=== PATIENT | female | born 1985 | race American Indian/Alaskan Native ===

== ENCOUNTER 2019-05-10 22:23 | Emergency (ER) | payer MEDICAID ==
[2019-05-10] MEDS ORDERED: Sodium Chloride 0.9% 10 ML Syringe FLUSH PRN (22:25)
[2019-05-10] MEDS ORDERED: HYDROmorphone 1 MG/ML Syringe IVPUSH ONE (22:26)
[2019-05-10] MEDS ORDERED: Iopamidol 612 MG/ML 100 ML Bottle IVPUSH ONE (22:42)
--- NOTE | 2019-05-10 22:49 | EDM.PDOC ---
ED HPI GENERAL MEDICAL PROBLEM - General Chief Complaint: Trauma Stated Complaint: BUCKED OFF A HORSE Time Seen by Provider: 05/10/19 22:35 Source of Information: Reports: Patient History Limitations: Reports: No Limitations - History of Present Illness INITIAL COMMENTS - FREE TEXT/NARRATIVE: HPI: This 33 yo female patient was brought to the ED in the backseat of a pickup after being bucked off a horse. The patient reports she fell directly onto her back from the horse. Since the fall, the patient has started to experience some diffuse abdominal pain. The patient denies any loss of consciousness before, during or after the fall. Primary Survey Airway: open and patient Breathing: regular without additional effort Circulation: no major bleeding noted Deformity: no deformity noted Expose: as appropriate GCS: 15 Secondary Survey HEENT Head: normocephalic, atraumatic Eyes: PERRLA Ears: no obvious trauma, canals open Nose: no deformity, no bleeding, mucosa moist Mouth: no noted trauma Throat: no abnormalities noted Neck: Subtle, normal range of motion no cervical tenderness Chest: lung sounds were clear and equal bilaterally Heart: RRR, no murmurs, rubs or gallop Abdomen: normoactive bowel sounds, no organomegally, diffuse tenderness on palpation Back: lower back tenderness (L2-L4), increased pain with movement Pelvis: stable Extremities: CMS intact Provider Trauma Notes Arrival Time: 2234 GCS on Arrival: 15 C-collar present on arrival: No GCS at 1 hour: Off spine board: NA Time primary survey: 2234 Time secondary survey:2239 Time C-collar cleared: 2234 By: DS Time removed: NA GCS on discharge: Onset: Today Duration: Minutes:, Constant Location: Reports: Abdomen, Back Quality: Reports: Ache, Sharp, Stabbing Severity: Severe Improves with: Reports: Rest Worsens with: Reports: Movement Context: Reports: Trauma (Fall from horse) - Related Data Allergies Allergy/AdvReac Type Severity Reaction Status Date / Time No Known Allergies Allergy Verified 05/10/19 22:44 Home Meds: Home Meds . [No Known Home Meds] 05/10/19 [History] Past Medical History - Past Health History Medical/Surgical History: Denies Medical/Surgical History Genitourinary History: Reports: None Other [employer] History: Hx Chlamydia, BV, Abnormal Pap LGSIL, IUD, Menorrhagia, Pelvic pain Musculoskeletal History: Reports: Back Pain, Chronic Hematologic History: Reports: Other (See Below) Other Hematologic History: tranfusion after D&C Dermatologic History: Reports: Other (See Below) Other Dermatologic History: tatoo - Past Surgical History GI Surgical History: Reports: Appendectomy, Cholecystectomy Female Surgical History: Reports: D&C Social & Family History - Living Situation & Occupation Living situation: Reports: Single, with Family Occupation: Unemployed Review of Systems - Review of Systems Review Of Systems: ROS reveals no pertinent complaints other than HPI. ED EXAM, GENERAL - Physical Exam Exam: See Below Exam Limited By: No Limitations General Appearance: Alert, WD/WN, Moderate Distress Eye Exam: Bilateral Eye: EOMI, Normal Inspection, PERRL Ears: Normal External Exam, Normal Canal, Hearing Grossly Normal, Normal TMs Nose: Normal Inspection, Normal Mucosa, No Blood Throat/Mouth: Normal Inspection, Normal Lips, Normal Teeth, Normal Gums, Normal Oropharynx, Normal Voice, No Airway Compromise Head: Atraumatic, Normocephalic Neck: Normal Inspection, Supple, Non-Tender, Full Range of Motion. No: Limited Range of Motion, Tender Lateral, Tender Midline Respiratory/Chest: No Respiratory Distress, Lungs Clear, Normal Breath Sounds, No Accessory Muscle Use, Chest Non-Tender Cardiovascular: Normal Peripheral Pulses, Regular Rate, Rhythm, No Edema, No Gallop, No JVD, No Murmur, No Rub GI/Abdominal: Normal Bowel Sounds, Soft, No Organomegaly, No Distention, No Abnormal Bruit, No Mass, Tender (diffuse abdominal tenderness (patient reports increased pain in lower back with palpation of abdomen)) (Female) Exam: Deferred Rectal (Female) Exam: Deferred Back Exam: Paraspinal Tenderness (lumbar spine), Vertebral Tenderness (lumbar spine) Extremities: Normal Inspection, Limited Range of Motion (due to lower back pain) Neurological: Alert, Oriented, CN II-XII Intact, Normal Cognition Psychiatric: Normal Affect, Normal Mood Skin Exam: Warm, Dry, Intact, Normal Color, No Rash Lymphatic: No Adenopathy Course - Orders/Labs/Meds Orders: Active Orders 24 hr Category Date Time Status Abdomen Pelvis w Cont [CT] Urgent Exams 05/10/19 22:42 Ordered Lumbar Spine wo Cont [CT] Urgent Exams 05/10/19 22:30 Ordered Sodium Chloride 0.9% @ 125 MLS/HR (1000ml) Med 05/11/19 00:15 Ordered Sodium Chloride 0.9% [Normal Saline] 1,000 ml IV ASDIRECTED Sodium Chloride 0.9% [Saline Flush] Med 05/10/19 22:25 Ordered 10 ml FLUSH ASDIRECTED PRN Saline Lock Insert [OM.PC] Routine Oth 05/10/19 22:25 Ordered Medication Orders Sodium Chloride (Normal Saline) 1,000 mls @ 125 mls/hr IV ASDIRECTED BENNY Last Admin: 05/11/19 00:17 Dose: 125 mls/hr Sodium Chloride (Saline Flush) 10 ml FLUSH ASDIRECTED PRN PRN Reason: Keep Vein Open Last Admin: 05/10/19 22:35 Dose: 10 ml Labs: Laboratory Tests 05/10/19 05/10/19 Range/Units 22:35 22:35 WBC 14.3 H (5.0-10.0) 10^3/uL RBC 4.67 (4.2-5.4) 10^6/uL Hgb 13.6 D (12.0-16.0) g/dL Hct 40.9 (37.0-47.0) % MCV 87.6 D (80-100) fL MCH 29.1 (27.0-34.0) pg MCHC 33.3 (33.0-35.0) g/dL Plt Count 200 (150-450) 10^3/uL Neut % (Auto) 85.5 H (42.2-75.2) % Lymph % (Auto) 9.3 L (20.5-50.1) % [place] % (Auto) 4.6 (2-8) % Eos % (Auto) 0.4 L (1.0-3.0) % Baso % (Auto) 0.2 (0.0-1.0) % Add Manual Diff Yes Neutrophils % (Manual) 80 H (42-75) % Band Neutrophils % 4 % Lymphocytes % (Manual) 11 L (20-50) % Monocytes % (Manual) 4 (2-8) % Eosinophils % (Manual) 1 (1-3) % Sodium 140 (135-145) mmol/L Potassium 3.9 (3.6-5.0) mmol/L Chloride 105 (101-111) mmol/L Carbon Dioxide 27.0 (21.0-31.0) mmol/L Anion Gap 11.9 BUN 10 (7-18) mg/dL Creatinine 0.8 (0.6-1.3) mg/dL Est Cr Clr Drug Dosing TNP Estimated GFR (MDRD) > 60 BUN/Creatinine Ratio 12.50 Glucose 101 (74-105) mg/dL Calcium 9.0 (8.4-10.2) mg/dl Total Bilirubin 0.5 (0.2-1.0) mg/dL AST 26 (10-42) IU/L ALT 31 (10-60) IU/L Alkaline Phosphatase 74 (42-121) IU/L Total Protein 7.0 (6.7-8.2) g/dl Albumin 3.9 (3.2-5.5) g/dl Globulin 3.1 Albumin/Globulin Ratio 1.26 Meds: Medications Generic Name Dose Route Start Last Admin Trade Name Freq PRN Reason Stop Dose Admin Sodium Chloride 1,000 mls @ 125 mls/hr 05/11/19 00:15 05/11/19 00:17 Normal Saline IV 125 mls/hr ASDIRECTED BENNY Administration Sodium Chloride 10 ml 05/10/19 22:25 05/10/19 22:35 Saline Flush FLUSH 10 ml ASDIRECTED PRN Administration Keep Vein Open Discontinued Medications Generic Name Dose Route Start Last Admin Trade Name Freq PRN Reason Stop Dose Admin Hydromorphone HCl 1 mg 05/10/19 22:26 05/10/19 22:35 Dilaudid IVPUSH 05/10/19 22:27 1 mg ONETIME ONE Administration Hydromorphone HCl 1 mg 05/11/19 00:10 05/11/19 00:16 Dilaudid IVPUSH 05/11/19 00:11 1 mg ONETIME ONE Administration Iopamidol 100 ml 05/10/19 22:42 05/10/19 22:53 Isovue-300 (61%) IVPUSH 05/10/19 22:43 100 ml ONETIME ONE Administration - Re-Assessments/Exams Free Text/Narrative Re-Assessment/Exam: 05/11/19 00:25 A call was placed to [facility] regarding the patient's injuries. Spoke with Dr. Hudson (Neurosurgery) who advised to transfer the patient directly to [facility] for their expertise in Neurosurgery. Call placed at [phone] Departure - Departure Time of Disposition: 00:06 Disposition: DC/Tfer to Acute Hospital 02 Condition: Fair Clinical Impression: Burst fracture of lumbar vertebra Qualifiers: Encounter type: initial encounter Fracture type: closed Qualified Code(s): S32.001A - Stable burst fracture of unspecified lumbar vertebra, initial encounter for closed fracture - Discharge Information *PRESCRIPTION DRUG MONITORING PROGRAM REVIEWED*: Not Applicable *COPY OF PRESCRIPTION DRUG MONITORING REPORT IN PATIENT DEBBY: Not Applicable Forms: Interfacility Transfer EMTALA Care Plan Goals: Discussed the patient's history, examination, lab results and CT results with Dr. Mclaughlin ([facility]). Dr. Mclaughlin accepted the patient for continued evaluation and management. The patient will be transported by [facility]. - My Orders Last 24 Hours: My Active Orders 05/10/19 22:25 Sodium Chloride 0.9% [Saline Flush] 10 ml FLUSH ASDIRECTED PRN Saline Lock Insert [OM.PC] Routine 05/10/19 22:30 Lumbar Spine wo Cont [CT] Urgent 05/10/19 22:42 Abdomen Pelvis w Cont [CT] Urgent 05/11/19 00:15 Sodium Chloride 0.9% @ 125 MLS/HR (1000ml) Sodium Chloride 0.9% [Normal Saline] 1,000 ml IV ASDIRECTED - Assessment/Plan Last 24 Hours: My Active Orders 05/10/19 22:25 Sodium Chloride 0.9% [Saline Flush] 10 ml FLUSH ASDIRECTED PRN Saline Lock Insert [OM.PC] Routine 05/10/19 22:30 Lumbar Spine wo Cont [CT] Urgent 05/10/19 22:42 Abdomen Pelvis w Cont [CT] Urgent 05/11/19 00:15 Sodium Chloride 0.9% @ 125 MLS/HR (1000ml) Sodium Chloride 0.9% [Normal Saline] 1,000 ml IV ASDIRECTED
[2019-05-10 23:17] LABS: ANION GAP 11.9; CHLORIDE,CL 105 mmol/L (101-111); SODIUM,NA 140 mmol/L (135-145)
[2019-05-11] MEDS ORDERED: HYDROmorphone 1 MG/ML Syringe IVPUSH ONE ×2 (00:10→00:52)
[2019-05-11] MEDS ORDERED: Sodium Chloride 0.9% 1,000 ML IV SCH (00:15)
== END 2019-05-11 01:04 ==
LOC: DL.ED 22:23
DX: S32.011A Stable burst fracture of first lumbar vertebra, initial encounter for closed fracture (principal); S32.029A Unspecified fracture of second lumbar vertebra, initial encounter for closed fracture; V80.010A Animal-rider injured by fall from or being thrown from horse in noncollision accident, initial encounter
CPT/HCPCS: 36415; 72131; 74177; 80053; 85025; 96361; 96374; 96376; 99285; J1170; J7030; Q9967

== ENCOUNTER 2024-11-17 20:44 | Emergency (ER) | payer MEDICAID ==
[2024-11-17] MEDS: Dexamethasone 4 MG/ML SDV IM ONE (22:59)
[2024-11-17] MEDS: Albuterol/Ipratropium 3.0-0.5 MG/3 ML Neb Soln NEB ONE (23:00)
[2024-11-17 23:50] VITALS: BP 117/73; PULSE 109
== END 2024-11-17 23:56 | disposition home or self-care (01) ==
LOC: DL.ED 20:44
DX: J06.9 Acute upper respiratory infection, unspecified (principal); B97.89 Other viral agents as the cause of diseases classified elsewhere; Z88.8 Allergy status to other drugs, medicaments and biological substances; Z90.49 Acquired absence of other specified parts of digestive tract
CPT/HCPCS: 71046; 81025; 87428; 96372; 99284; J1100; J7620; A9270-GY

== ENCOUNTER 2025-07-29 17:33 | Emergency (ER) | payer MEDICAID ==
[2025-07-29 18:10] LABS: BASOPHILS PERCENT AUTO 0.5 % (0.0-1.0); EOSINOPHILS PERCENT AUTO 0.3 % (1.0-3.0); LYMPHOCYTES PERCENT AUTO 19.4 % (20.5-50.1); MONOCYTES PERCENT AUTO 8.1 % (2-8); NEUTROPHILS PERCENT AUTO 71.7 % (42.2-75.2); PLATELET COUNT,PLT 464 10^3/uL (150-450); RED BLOOD CELL COUNT 4.21 10^6/uL (4.2-5.4); WHITE BLOOD CELL COUNT,WBC 7.7 10^3/uL (5.0-10.0)
[2025-07-29 18:41] LABS: A/G RATIO 1.0; ALANINE AMINOTRANSFERASE,ALT 15.0 U/L (14-59); ASPARTATE AMNIOTRANSFERASE,AST 9.0 U/L (15-37); BILIRUBIN TOTAL 0.3 mg/dL (0.2-1.0); BLOOD UREA NITROGEN,BUN 8.0 mg/dL (7-18); CARBON DIOXIDE,CO2 29.0 mmol/L (21-32); CHLORIDE,CL 103.0 mmol/L (98-107); CREATININE 0.76 mg/dL (0.55-1.02); EST CRCL DRUG DOSING (CG) 83.02 mL/min; ESTIMATED GFR 103.0 mL/min (>=60); GLUCOSE RANDOM 93.0 mg/dL (70-99); INR 0.9 (0.9-1.2); POTASSIUM,K 3.4 mmol/L (3.5-5.1); PROTEIN TOTAL,TP 7.2 g/dL (6.4-8.2); SODIUM,NA 140.0 mmol/L (136-145); TSH ULTRASENSITIVE 0.11 uIU/mL (0.36-3.74)
[2025-07-29 18:42] LABS: PTT,PARTIAL THROMBOPLSTIN TIME 24.0 SEC (22.0-34.0)
[2025-07-29 18:44] LABS: IRON,FE 11.0 ug/dL (50-170); PERCENT FE SATURATION 2.6 % (20.0-50.0)
[2025-07-29] MEDS: ferumoxytoL 1,020 MG in Sodium Chloride 0.9% 100 ML IV ONE (19:31)
[2025-07-29 20:51] VITALS: BP 119/77; PULSE 63
== END 2025-07-29 20:52 | disposition home or self-care (01) ==
LOC: DL.ED 17:33
DX: D50.9 Iron deficiency anemia, unspecified (principal); Z90.49 Acquired absence of other specified parts of digestive tract; Z79.899 Other long term (current) drug therapy
CPT/HCPCS: 80053; 82728; 83540; 83550; 84443; 85025; 85610; 85730; 96365; 99284; Q0138; 36415